=== PATIENT | female | born 1940 | race Caucasian/White ===

== ENCOUNTER 2017-03-09 20:31 | Inpatient (IN) | payer MEDICARE, OTHER ==
[2017-03-09] MEDS ORDERED: Adenosine 6 MG/2 ML SDV ONE (20:54)
[2017-03-09] MEDS ORDERED: Diltiazem 100 MG AdvVial ONE (21:03)
[2017-03-09] MEDS ORDERED: Diltiazem 25 MG/5 ML SDV ONE (21:04)
[2017-03-09] MEDS ORDERED: Sodium Chloride 0.9% 100 ML ONE (21:08)
[2017-03-09] MEDS ORDERED: Sodium Chloride 0.9% 10 ML Syringe FLUSH PRN ×2 (21:13→23:41)
[2017-03-09] MEDS ORDERED: Propofol 200 MG/20 ML SDV ONE (21:33)
[2017-03-09] MEDS ORDERED: Amiodarone 150 MG in Dextrose 5% in Water 100 ML IV ONE ×2 (21:58)
--- NOTE | 2017-03-09 22:13 | EDM.PDOC ---
ED HISTORY OF PRESENT ILLNESS - General Chief Complaint: Cardiovascular Problem Stated Complaint: HEART PALPITATIONS Time Seen by Provider: 03/09/17 21:11 Source: Reports: Patient, Family History Limitations: Reports: No limitations - History of Present Illness INITIAL COMMENTS - FREE TEXT/NARRATIVE: 76-year-old female presents emergency department day complaint of palpitations, she states is fine at rest he is not short of breath however he she exerts herself she gets significantly short of breath no nausea vomiting no other GI symptomatologies she takes no prescribed medications she has no heart history does use tobacco products - Related Data Allergies/ADRs: Allergies Allergy/AdvReac Type Severity Reaction Status Date / Time morphine Allergy Cannot Verified 03/09/17 21:23 Remember Home Meds: Home Meds Aspirin 03/09/17 [History] Past Medical History - Past Surgical History GI Surgical History: Reports: Appendectomy, Cholecystectomy Social & Family History - Tobacco Use Smoking Status *Q: Current Every Day Smoker Years of Tobacco use: 60 Packs/Tins Daily: 1.5 ED ROS GENERAL - Review of Systems Review Of Systems: See Below Constitutional: Reports: no symptoms HEENT: Reports: No symptoms Respiratory: Reports: No Symptoms Cardiovascular: Reports: Dyspnea on exertion, Palpitations GI/Abdominal: Reports: No symptoms : Reports: no symptoms Musculoskeletal: Reports: no symptoms ED EXAM, GENERAL - Physical Exam Exam: See Below Exam Limited By: No limitations Eye Exam: bilateral eye: normal inspection Throat/Mouth: Normal inspection Head: atraumatic, normocephalic Neck: normal inspection, supple, non-tender, full range of motion Respiratory/Chest: no respiratory distress, lungs clear, normal breath sounds, no accessory muscle use Cardiovascular: tachycardia GI/Abdominal: soft, non tender ED CARDIOLOGY PROCEDURES - Cardioversion Time of Cardioversion: 22:28 Indication: atrial fibrillation with RVR Patient Counseled: Yes Informed Consent Obtained: Yes Preparation: IV access, airway management equipment, supplemental oxygen, monitor, reversal agents available Pre-procedure Sedation: propofol Cardioversion Energy: other (125,150,200,300) Mode: biphasic Successful: No Number of Attempts: other: (3) Patient Condition Post Cardioversion: unchanged Post Cardioversion EKG Reviewed: No (no change in rhythm) Course - Vital Signs Last Recorded V/S: Last Vital Signs Temp 100.0 F 03/09/17 21:31 Pulse 235 H 03/09/17 21:31 Resp 24 H 03/09/17 21:31 BP 138/88 03/09/17 21:31 Pulse Ox 94 L 03/09/17 21:31 - Orders/Labs/Meds Orders: Active Orders 24 hr Category Date Time Status Cardiac Monitoring [RC] .As Directed Care 03/09/17 21:13 Active EKG Documentation Completion [RC] ASDIRECTED Care 03/09/17 21:13 Active Peripheral IV Care [RC] . DIRECTED Care 03/09/17 21:13 Active Chest 1V Frontal [CR] Stat Exams 03/09/17 21:13 Taken Amiodarone 450 MG in D5W @ 1 MG/MIN(250ml) Med 03/09/17 22:00 Ordered Amiodarone [Cordarone] 450 mg Dextrose 5% in Water 241 ml IV ASDIRECTED Amiodarone [Cordarone] 150 mg Med 03/09/17 21:58 Ordered Dextrose 5% in Water 100 ml IV .BOLUS Sodium Chloride 0.9% [Saline Flush] Med 03/09/17 21:13 Active 10 ml FLUSH ASDIRECTED PRN Peripheral IV Insertion Adult [OM.PC] Stat Oth 03/09/17 21:13 Ordered Saline Lock Insert [OM.PC] Stat Oth 03/09/17 21:13 Ordered EKG 12 Lead [EK] Stat Ther 03/09/17 21:13 Ordered Medication Orders Amiodarone HCl 150 mg/ (Dextrose/Water) 103 mls @ 600 mls/hr IV .BOLUS ONE PRN Reason: Protocol Stop: 03/09/17 22:08 Amiodarone HCl 450 mg/ (Dextrose/Water) 250 mls @ 33.33 mls/hr IV ASDIRECTED CECIL; 1 MG/MIN PRN Reason: Protocol Sodium Chloride (Saline Flush) 10 ml FLUSH ASDIRECTED PRN PRN Reason: Keep Vein Open Labs: Laboratory Tests 03/09/17 03/09/17 03/09/17 Range/Units 21:13 21:13 21:13 WBC 15.1 H (4.5-11.0) K/uL RBC 4.17 (3.30-5.50) M/uL Hgb 13.1 (12.0-15.0) g/dL Hct 39.5 (36.0-48.0) % MCV 95 (80-98) fL MCH 31 (27-31) pg MCHC 33 (32-36) % Plt Count 304 (150-400) K/uL Neut % (Auto) 77 H (36-66) % Lymph % (Auto) 12 L (24-44) % [place] % (Auto) 9 H (2-6) % Eos % (Auto) 1 L (2-4) % Baso % (Auto) 1 (0-1) % Sodium 136 L (140-148) mmol/L Potassium 3.5 L (3.6-5.2) mmol/L Chloride 99 L (100-108) mmol/L Carbon Dioxide 25 (21-32) mmol/L Anion Gap 15.5 H (5.0-14.0) mmol/L BUN 9 (7-18) mg/dL Creatinine 0.9 (0.6-1.0) mg/dL Est Cr Clr Drug Dosing 49.78 mL/min Estimated GFR (MDRD) > 60 (>60) Glucose 178 H (74-106) mg/dL Calcium 8.1 L (8.5-10.1) mg/dL Total Bilirubin 0.7 (0.2-1.0) mg/dL AST 11 L (15-37) U/L ALT 12 (12-78) U/L Alkaline Phosphatase 90 (46-116) U/L CK-MB (CK-2) 0.3 (0-3.6) mg/mL Troponin I 0.038 (0.000-0.056) ng/mL Total Protein 7.1 (6.4-8.2) g/dL Albumin 3.1 L (3.4-5.0) g/dL Globulin 4.0 H (2.3-3.5) g/dL Albumin/Globulin Ratio 0.8 L (1.2-2.2) Ethyl Alcohol < 3 mg/dL Meds: Medications Generic Name Dose Route Start Last Admin Trade Name Freq PRN Reason Stop Dose Admin Amiodarone HCl 150 mg/ 103 mls @ 600 mls/hr 03/09/17 21:58 Dextrose/Water IV 03/09/17 22:08 .BOLUS ONE Protocol Amiodarone HCl 450 mg/ 250 mls @ 33.33 mls/hr 03/09/17 22:00 Dextrose/Water IV ASDIRECTED CECIL Protocol 1 MG/MIN Sodium Chloride 10 ml 03/09/17 21:13 Saline Flush FLUSH ASDIRECTED PRN Keep Vein Open Discontinued Medications Generic Name Dose Route Start Last Admin Trade Name [place] PRN Reason Stop Dose Admin Adenosine Confirm 03/09/17 20:54 Adenocard Administered 03/09/17 20:55 Dose 18 mg .ROUTE .STK-MED ONE Diltiazem HCl Confirm 03/09/17 21:03 Cardizem Administered 03/09/17 21:04 Dose 100 mg .ROUTE .STK-MED ONE Diltiazem HCl Confirm 03/09/17 21:04 Diltiazem Administered 03/09/17 21:05 Dose 25 mg .ROUTE .STK-MED ONE Sodium Chloride Confirm 03/09/17 21:08 Normal Saline Administered 03/09/17 21:09 Dose 100 mls @ as directed .ROUTE .STK-MED ONE Propofol Confirm 03/09/17 21:33 Diprivan 20 Ml Administered 03/09/17 21:34 Dose 200 mg .ROUTE .STK-MED ONE Departure - Departure Time of Disposition: 22:32 Disposition: Admitted As Inpatient 66 Condition: fair Clinical Impression: Atrial fibrillation Qualifiers: Atrial fibrillation type: persistent Qualified Code(s): I48.1 - Persistent atrial fibrillation Forms: ED Department Discharge - My Orders Last 24 Hours: My Active Orders 03/09/17 21:13 Cardiac Monitoring [RC] .As Directed EKG Documentation Completion [RC] ASDIRECTED Peripheral IV Care [RC] . DIRECTED Chest 1V Frontal [CR] Stat Sodium Chloride 0.9% [Saline Flush] 10 ml FLUSH ASDIRECTED PRN Peripheral IV Insertion Adult [OM.PC] Stat Saline Lock Insert [OM.PC] Stat EKG 12 Lead [EK] Stat 03/09/17 21:58 Amiodarone [Cordarone] 150 mg Dextrose 5% in Water 100 ml IV .BOLUS 03/09/17 22:00 Amiodarone 450 MG in D5W @ 1 MG/MIN(250ml) Amiodarone [Cordarone] 450 mg Dextrose 5% in Water 241 ml IV ASDIRECTED - Assessment/Plan Last 24 Hours: My Active Orders 03/09/17 21:13 Cardiac Monitoring [RC] .As Directed EKG Documentation Completion [RC] ASDIRECTED Peripheral IV Care [RC] . DIRECTED Chest 1V Frontal [CR] Stat Sodium Chloride 0.9% [Saline Flush] 10 ml FLUSH ASDIRECTED PRN Peripheral IV Insertion Adult [OM.PC] Stat Saline Lock Insert [OM.PC] Stat EKG 12 Lead [EK] Stat 03/09/17 21:58 Amiodarone [Cordarone] 150 mg Dextrose 5% in Water 100 ml IV .BOLUS 03/09/17 22:00 Amiodarone 450 MG in D5W @ 1 MG/MIN(250ml) Amiodarone [Cordarone] 450 mg Dextrose 5% in Water 241 ml IV ASDIRECTED Plan: Assessment Acuity = acute Site and laterality = atrial fibrillation with rapid ventricular response Etiology = unclear etiology Manifestations = dyspnea on exertion Location of injury = home Lab values = WBC elevated at 15.1 consistent leukocytosis, sodium low at 136 consistent hyponatremia potassium low at 2.5 consistent hypokalemia troponin normal at 0.038, albumin low at 3.1 consistent with hypoalbuminemia, EKG demonstrates a sinus tachycardia able to slow the rhythm down with adenosine I observed no P waves on the rhythm strip Plan Attempted combination of Cardizem loading doses 0.25 mg per kilogram and 0.35 mg per kilogram with minimal effects of Cardizem drip was started prior to DC conversion attempted DC conversion 4 times up to 300 J was unsuccessful. Consultants hospitalist over the horizon targeting supervisor recommended trying amiodarone and hospital admission with the drip for further evaluation Patient was in agreement with the plan all questions were answered, This note was dictated using [employer] voice recognition software please call with any questions.
[2017-03-09] MEDS ORDERED: Adenosine 6 MG/2 ML SDV IVPUSH ONE ×2 (22:23)
[2017-03-09] MEDS ORDERED: Diltiazem 25 MG/5 ML SDV IVPUSH ONE (22:25)
[2017-03-09] MEDS ORDERED: Diltiazem 100 MG in Sodium Chloride 0.9% 100 ML IV SCH (22:30)
[2017-03-09] MEDS ORDERED: Sodium Chloride 0.9% 1,000 ML IV SCH ×2 (22:45→23:41)
--- NOTE | 2017-03-09 23:19 | PCM.HP ---
H&P History of Present Illness - General Date of Service: 03/09/17 Admit Problem/Dx: Admission Diagnosis/Problem Admission Diagnosis/Problem Atrial fibrillation Source of Information: Patient, Family, Provider, RN notes reviewed History Limitations: Reports: No limitations - History of Present Illness Initial Comments - Free Text/Narative: This patient is a 76-year-old woman who is admitted through the emergency department for further evaluation and management of atrial fibrillation with rapid ventricular response. She has no prior history of atrial fibrillation and denies any prior history of significant cardiac disease, specifically denies congestive heart failure, rheumatic fever, heart murmur, coronary artery disease, or other dysrhythmias. She is a [id number] smoking history and I suspect does have some underlying COPD. She takes no medication other than a baby aspirin daily. It's felt somewhat more fatigued and tired over the past few days, but has been taking care of 2 of her very young great-grandchildren. Today noted abrupt onset of a rapid heart rate, and after symptoms did not resolve she presented to the emergency room for further evaluation. On initial assessment was noted to have a heart rate in the range of 200, again is seen transit least load the rate but then it jumped back up to the previous range. She was given bolus doses of Cardizem that did bring it down but did not bring the rate within normal range. 3 attempts at cardioversion were unsuccessful in converting her to sinus rhythm. She's been given a loading dose of amiodarone in the emergency department and started on a continuous infusion per protocol. - Related Data Allergies/Adverse Reactions: Allergies Allergy/AdvReac Type Severity Reaction Status Date / Time morphine Allergy Cannot Verified 03/09/17 21:23 Remember Home Medications: Home Meds Aspirin 03/09/17 [History] Past Medical History - Past Surgical History GI Surgical History: Reports: Appendectomy, Cholecystectomy Social & Family History - Tobacco Use Smoking Status *Q: Current Every Day Smoker Years of Tobacco use: 60 Packs/Tins Daily: 1.5 H&P Review of Systems - Review of Systems: Review Of Systems: See Below General: Reports: fatigue. Denies: fever, chills HEENT: Reports: no symptoms Pulmonary: Reports: No Symptoms Cardiovascular: Reports: palpitations, lightheadedness. Denies: chest pain, dyspnea on exertion, orthopnea, PND, edema, syncope Gastrointestinal: Reports: No symptoms Genitourinary: Reports: no symptoms Musculoskeletal: Reports: no symptoms Skin: Reports: no symptoms Psychiatric: Reports: no symptoms Neurological: Reports: No Symptoms Hematologic/Lymphatic: Reports: no symptoms Immunologic: Reports: no symptoms Exam - Exam Exam: See Below - Vital Signs Vital Signs: Last Vital Signs Temp 100.0 F 03/09/17 21:31 Pulse 170 H 03/09/17 22:31 Resp 24 H 03/09/17 21:31 BP 128/56 L 03/09/17 22:49 Pulse Ox 91 L 03/09/17 22:06 Weight: 130 lb 11.746 oz - Exam Quality Assessment: supplemental oxygen, DVT prophylaxis General: alert, oriented, cooperative, mild distress HEENT: Conjunctiva clear, Hearing intact, Mucosa moist & pink, Nares patent, Normal nasal septum, Posterior pharynx clear, Pupils equal, Pupils reactive, TMs clear Neck: supple, trachea midline, +2 carotid pulse wo bruit Lungs: Decreased breath sounds, Wheezing. No: Crackles, Rales, Rhonchi, Rub, Stridor Cardiovascular: normal S1, normal S2, irregular rhythm, tachycardia. No: bradycardia, systolic murmur, diastolic murmur Abdomen: normal bowel sounds, soft Back Exam: normal inspection, full range of motion, NT Extremities: 3, normal inspection, 10 Skin: warm, dry, intact Neurological: cranial nerves intact, strength equal bilateral, normal speech, normal tone, sensation intact. No: focal deficit Neuro Extensive - Mental Status: alert, oriented x3, normal mood/affect, normal cognition, memory intact - Patient Data Result Diagrams: 03/09/17 21:13 03/09/17 21:13 *Q Meaningful Use (ADM) - VTE *Q VTE Criteria *Q: - VTE Risk Assess *Q Each Risk Factor Represents 1 Point: None Total Score 1 Point Risk Factors: 0 Each Risk Factor Represents 2 Points: None Total Score 2 Point Risk Factors: 0 Each Risk Factor Represents 3 Points: Age 75 Years or Greater Total Score 3 Point Risk Factors: 3 Each Risk Factor Represents 5 Points: None Total Score 5 Point Risk Factors: 0 Venous Thromboembolism Risk Factor Score *Q: 3 - Stroke *Q Stroke Criteria *Q: - AMI *Q AMI Criteria *Q: Problem List Initiated/Reviewed/Updated: Yes Orders Last 24hrs: Active Orders 24 hr Category Date Time Status Patient Status Manage Transfer [TRANSFER] Routine ADT 03/09/17 23:01 Ordered Cardiac Monitoring [RC] .As Directed Care 03/09/17 23:01 Ordered Resuscitation Status Routine Resus Stat 03/09/17 23:02 Ordered Medication Orders Amiodarone HCl 450 mg/ (Dextrose/Water) 250 mls @ 33.33 mls/hr IV ASDIRECTED CECIL; 1 MG/MIN PRN Reason: Protocol Last Admin: 03/09/17 22:49 Dose: 1 mg/min, 33.33 mls/hr Diltiazem HCl 100 mg/ Sodium (Chloride) 100 mls @ 5 mls/hr IV TITRATE CECIL; 5 MG /HR PRN Reason: Protocol Last Admin: 03/09/17 22:31 Dose: 5 mg/hr, 5 mls/hr Sodium Chloride (Normal Saline) 1,000 mls @ 150 mls/hr IV ASDIRECTED CECIL Last Admin: 03/09/17 22:39 Dose: 150 mls/hr Sodium Chloride (Saline Flush) 10 ml FLUSH ASDIRECTED PRN PRN Reason: Keep Vein Open Last Admin: 03/09/17 22:36 Dose: 10 ml Assessment/Plan Comment:: ASSESSMENT AND PLAN ATRIAL FIBRILLATION WITH RAPID VENTRICULAR RESPONSE-the abrupt onset this evening, rates approaching 200 beats per minute. No significant history of cardiac disease, I suspect that she does have some underlying COPD. Failed management with IV Cardizem and attempted cardioversion. Given amiodarone bolus in the emergency department -Continuous infusion of amiodarone per protocol -TSH and magnesium pending -Echocardiogram in a.m. -N.p.o. after midnight for possible repeat cardioversion in a.m. MAINTENANCE ISSUES -DVT prophylaxis; Lovenox 40 mg subcutaneous daily -GI prophylaxis; not indicated -Parsons catheter; not indicated -Nutrition; regular diet, n.p.o. after midnight -Nicotine dependence; nicotinic patch 21 mg daily CODE STATUS-FULL CODE ADMISSION STATUS-patient will be admitted to inpatient status, expect at least a 2 night hospital stay for evaluation and management of problems as outlined above. At the time of this admission I do not reasonably expected evaluation and management of this problem will require more than a 96 hour hospital stay. DISPOSITION-anticipate discharge to home after the hospital stay. PRIMARY CARE PROVIDER-
[2017-03-09] MEDS ORDERED: Magnesium Sulfate/Water 2 GM in Premix Bag 1 BAG IV ONE (23:23)
[2017-03-09] MEDS ORDERED: Albuterol 0.083% 2.5 MG/3 ML Neb Soln NEB PRN (23:41)
[2017-03-09] MEDS ORDERED: Albuterol/Ipratropium 3.0-0.5 MG/3 ML Neb Soln NEB PRN (23:41)
[2017-03-09] MEDS ORDERED: Enoxaparin 40 MG/0.4 ML Syringe SUBCUT SCH (23:41)
[2017-03-09] MEDS ORDERED: Polyethylene Glycol 3350 Powder 17 GM Packet PO PRN (23:41)
[2017-03-09] MEDS ORDERED: oxyCODONE 5 MG Tab PO PRN (23:41)
[2017-03-09] MEDS ORDERED: Docusate Sodium 100 MG Cap PO PRN (23:41)
[2017-03-09] MEDS ORDERED: Potassium Chloride 20 MEQ Tab.ER PO ONE (23:41)
[2017-03-09] MEDS ORDERED: Acetaminophen 325 MG Tab PO PRN (23:41)
[2017-03-09] MEDS ORDERED: Magnesium Hydroxide 400 MG/5 ML Susp 30 ML Cup PO PRN (23:41)
[2017-03-09] MEDS ORDERED: Ondansetron 4 MG/2 ML SDV IV PRN (23:41)
[2017-03-10] MEDS: LORazepam 0.5 MG Tab PO PRN (00:58)
[2017-03-10] MEDS: Metoprolol Tartrate 50 MG Tab PO SCH ×2 (00:59→06:27)
--- NOTE | 2017-03-10 08:53 | PCM.PN ---
- General Info Date of Service: 03/10/17 Functional Status: Reports: pain controlled, tolerating diet - Review of Systems General: Reports: Weakness. Denies: Fever Cardiovascular: Denies: Chest Pain, Palpitations Systems Review Comment:: No acute events overnight. She converted to normal sinus rhythm around 2 AM and has remained in normal sinus rhythm since that time. Blood pressures have tolerated the amiodarone infusion. She has a loose sounding cough but has not had any fevers. She has not been hypoxic. No complaints of chest pain. Troponin level did rise to 0.26 this morning. Urine sample appeared to be infected and urine has a very strong odor. Patient reports symptoms of frequency and incomplete emptying of her bladder. - Patient Data Vitals - most recent: Last Vital Signs Temp 37.4 C 03/10/17 08:00 Pulse 87 03/10/17 08:00 Resp 24 H 03/10/17 08:00 BP 126/84 03/10/17 08:00 Pulse Ox 90 L 03/10/17 08:00 Weight - most recent: 59.3 kg I&O - last 24 hours: Intake & Output 03/09/17 03/10/17 03/10/17 22:59 06:59 14:59 Intake Total 1923 Output Total 900 Balance 1023 Lab Results last 24 hrs: Laboratory Results - last 24 hr 03/09/17 03/10/17 03/10/17 Range/Units 23:41 04:45 04:45 WBC 14.8 H (4.5-11.0) K/uL RBC 3.81 (3.30-5.50) M/uL Hgb 11.9 L (12.0-15.0) g/dL Hct 36.6 (36.0-48.0) % MCV 96 (80-98) fL MCH 31 (27-31) pg MCHC 33 (32-36) % Plt Count 240 (150-400) K/uL Neut % (Auto) 79 H (36-66) % Lymph % (Auto) 11 L (24-44) % [place] % (Auto) 10 H (2-6) % Eos % (Auto) 0 L (2-4) % Baso % (Auto) 0 (0-1) % Sodium 140 (140-148) mmol/L Potassium 4.3 (3.6-5.2) mmol/L Chloride 107 (100-108) mmol/L Carbon Dioxide 24 (21-32) mmol/L Anion Gap 8.8 (5.0-14.0) mmol/L BUN 9 (7-18) mg/dL Creatinine 0.7 (0.6-1.0) mg/dL Est Cr Clr Drug Dosing 64.01 mL/min Estimated GFR (MDRD) > 60 (>60) Glucose 149 H (74-106) mg/dL Calcium 7.6 L (8.5-10.1) mg/dL Magnesium (1.8-2.4) mg/dL Troponin I 0.265 H* (0.000-0.056) ng/mL Urine Color Yellow Urine Appearance Cloudy Urine pH 6.0 (4.5-8.0) Ur Specific [place] 1.010 (1.008-1.030) Urine Protein Negative (NEGATIVE) mg/dL Urine Glucose (UA) Normal (NEGATIVE) mg/dL Urine Ketones Negative (NEGATIVE) mg/dL Urine Occult Blood Moderate (NEGATIVE) Urine Nitrite Positive H (NEGATIVE) Urine Bilirubin Negative (NEGATIVE) Urine Urobilinogen Normal (NORMAL) mg/dL Ur Leukocyte Esterase Small (NEGATIVE) Urine RBC 0-5 (0-5) Urine WBC 0-5 (0-5) Ur Epithelial Cells Rare Amorphous Sediment Not seen Urine Bacteria Many Urine Mucus Not seen 03/10/17 Range/Units 04:45 WBC (4.5-11.0) K/uL RBC (3.30-5.50) M/uL Hgb (12.0-15.0) g/dL Hct (36.0-48.0) % MCV (80-98) fL MCH (27-31) pg MCHC (32-36) % Plt Count (150-400) K/uL Neut % (Auto) (36-66) % Lymph % (Auto) (24-44) % [place] % (Auto) (2-6) % Eos % (Auto) (2-4) % Baso % (Auto) (0-1) % Sodium (140-148) mmol/L Potassium (3.6-5.2) mmol/L Chloride (100-108) mmol/L Carbon Dioxide (21-32) mmol/L Anion Gap (5.0-14.0) mmol/L BUN (7-18) mg/dL Creatinine (0.6-1.0) mg/dL Est Cr Clr Drug Dosing mL/min Estimated GFR (MDRD) (>60) Glucose (74-106) mg/dL Calcium (8.5-10.1) mg/dL Magnesium 2.3 D (1.8-2.4) mg/dL Troponin I (0.000-0.056) ng/mL Urine Color Urine Appearance Urine pH (4.5-8.0) Ur Specific [place] (1.008-1.030) Urine Protein (NEGATIVE) mg/dL Urine Glucose (UA) (NEGATIVE) mg/dL Urine Ketones (NEGATIVE) mg/dL Urine Occult Blood (NEGATIVE) Urine Nitrite (NEGATIVE) Urine Bilirubin (NEGATIVE) Urine Urobilinogen (NORMAL) mg/dL Ur Leukocyte Esterase (NEGATIVE) Urine RBC (0-5) Urine WBC (0-5) Ur Epithelial Cells Amorphous Sediment Urine Bacteria Urine Mucus Med Orders - Current: Current Medications Acetaminophen (Tylenol) 650 mg PO Q4H PRN PRN Reason: Pain (Mild 1-3)/fever Albuterol (Proventil Neb Soln) 2.5 mg NEB Q4H PRN PRN Reason: Shortness Of Breath/wheezing Albuterol/Ipratropium (Duoneb 3.0-0.5 Mg/3 Ml) 3 ml NEB QID PRN PRN Reason: Shortness Of Breath/wheezing Amiodarone HCl (Cordarone) 200 mg PO BID [facility] Docusate Sodium (Colace) 100 mg PO BID PRN PRN Reason: Constipation Enoxaparin Sodium (Lovenox) 40 mg SUBCUT Q24H [facility] Amiodarone HCl 450 mg/ (Dextrose/Water) 250 mls @ 33.33 mls/hr IV ASDIRECTED [facility]; 1 MG/MIN PRN Reason: Protocol Last Admin: 03/10/17 08:13 Dose: 0.5 mg/min, 16.66 mls/hr Sodium Chloride (Normal Saline) 1,000 mls @ 100 mls/hr IV ASDIRECTED [facility] Last Admin: 03/10/17 00:11 Dose: 100 mls/hr Ceftriaxone Sodium 1 gm/ (Sodium Chloride) 50 mls @ 100 mls/hr IV Q24H [facility] Lorazepam (Ativan) 0.5 mg PO Q4H PRN PRN Reason: Anxiety Last Admin: 03/10/17 00:58 Dose: 0.5 mg Magnesium Hydroxide (Milk Of Magnesia) 30 ml PO Q12H PRN PRN Reason: Constipation Metoprolol Tartrate (Lopressor) 25 mg PO Q6H [facility] Ondansetron HCl (Zofran) 4 mg IV Q4H PRN PRN Reason: Nausea/Vomiting Oxycodone HCl (Oxycodone) 5 mg PO Q4H PRN PRN Reason: Pain (moderate 4-6) Polyethylene Glycol (Miralax) 17 gm PO DAILY PRN PRN Reason: Constipation Sodium Chloride (Saline Flush) 10 ml FLUSH ASDIRECTED PRN PRN Reason: Keep Vein Open Last Admin: 03/09/17 23:59 Dose: 10 ml Discontinued Medications Adenosine (Adenocard) Confirm Administered Dose 18 mg .ROUTE .STK-MED ONE Stop: 03/09/17 20:55 Last Admin: 03/09/17 23:40 Dose: Not Given Adenosine (Adenocard) 6 mg IVPUSH NOW ONE Stop: 03/09/17 22:24 Last Admin: 03/09/17 22:29 Dose: 6 mg Adenosine (Adenocard) 12 mg IVPUSH NOW ONE Stop: 03/09/17 22:24 Last Admin: 03/09/17 22:29 Dose: 12 mg Diltiazem HCl (Cardizem) Confirm Administered Dose 100 mg .ROUTE .STK-MED ONE Stop: 03/09/17 21:04 Last Admin: 03/09/17 23:40 Dose: Not Given Diltiazem HCl (Diltiazem) Confirm Administered Dose 25 mg .ROUTE .STK-MED ONE Stop: 03/09/17 21:05 Last Admin: 03/09/17 23:40 Dose: Not Given Diltiazem HCl (Diltiazem) 15 mg IVPUSH ONETIME ONE Stop: 03/09/17 22:26 Last Admin: 03/09/17 22:30 Dose: 15 mg Enoxaparin Sodium (Lovenox) [address] [facility] Last Admin: 03/10/17 00:13 Dose: 40 mg Sodium Chloride (Normal Saline) Confirm Administered Dose 100 mls @ as directed .ROUTE .STK-MED ONE Stop: 03/09/17 21:09 Last Admin: 03/09/17 23:40 Dose: Not Given Amiodarone HCl 150 mg/ (Dextrose/Water) 103 mls @ 600 mls/hr IV .BOLUS ONE PRN Reason: Protocol Stop: 03/09/17 22:08 Last Admin: 03/09/17 22:20 Dose: 600 mls/hr Amiodarone HCl 450 mg/ (Dextrose/Water) 250 mls @ 33.33 mls/hr IV ASDIRECTED [facility]; 1 MG/MIN PRN Reason: Protocol Last Admin: 03/09/17 22:49 Dose: 1 mg/min, 33.33 mls/hr Diltiazem HCl 100 mg/ Sodium (Chloride) 100 mls @ 5 mls/hr IV TITRATE [facility]; 5 MG /HR PRN Reason: Protocol Last Admin: 03/09/17 22:31 Dose: 5 mg/hr, 5 mls/hr Sodium Chloride (Normal Saline) 1,000 mls @ 150 mls/hr IV ASDIRECTED [facility] Last Admin: 03/09/17 22:39 Dose: 150 mls/hr Magnesium Sulfate 2 gm/ Premix 50 mls @ 25 mls/hr IV ONETIME ONE Stop: 03/10/17 01:22 Last Admin: 03/09/17 23:57 Dose: 25 mls/hr Metoprolol Tartrate (Lopressor) 25 mg PO Q6H [facility] Last Admin: 03/10/17 06:27 Dose: 25 mg Metoprolol Tartrate (Lopressor) 25 mg PO Q6H [facility] Nicotine (Habitrol) 21 mg TRDERM DAILY [facility] Last Admin: 03/10/17 08:14 Dose: Not Given Potassium Chloride (Klor-Con M20) 40 meq PO ONETIME ONE Stop: 03/09/17 23:42 Last Admin: 03/10/17 00:07 Dose: 40 meq Propofol (Diprivan 20 Ml) Confirm Administered Dose 200 mg .ROUTE .STK-MED ONE Stop: 03/09/17 21:34 Sodium Chloride (Saline Flush) 10 ml FLUSH ASDIRECTED PRN PRN Reason: Keep Vein Open Last Admin: 03/09/17 22:36 Dose: 10 ml - Exam Quality Assessment: No: supplemental oxygen General: alert, oriented, cooperative, no acute distress Neck: supple Lungs: Clear to auscultation, Normal respiratory effort Cardiovascular: Regular Rate, Regular Rhythm. No: Murmurs Abdomen: soft, no distension Extremities: no edema, normal pulses Skin: warm, dry Psy/Mental Status: alert, normal affect - Problem List Review Problem List Initiated/Reviewed/Updated: Yes - My Orders Last 24 Hours: My Active Orders 03/10/17 08:18 CULTURE URINE [RM] Routine 03/10/17 09:00 cefTRIAXone [Rocephin] 1 gm Sodium Chloride 0.9% [Normal Saline] 50 ml IV Q24H 03/10/17 10:00 T4 FREE [CHEM] Timed TROPONIN I [CHEM] Timed 03/11/17 05:00 BASIC METABOLIC PANEL,BMP [CHEM] Timed CBC W/O DIFF,HEMOGRAM [HEME] Timed (1) 03/11/17 09:00 Amiodarone [Cordarone] 200 mg PO BID - Plan Plan:: ASSESSMENT AND PLAN ATRIAL FIBRILLATION WITH RAPID VENTRICULAR RESPONSE - now in normal sinus rhythm after amiodarone infusion. Triggers could include urinary tract infection with or without contribution from COPD and/or minor valvular issues. Formal echocardiogram read is pending but she does have some mitral regurgitation noted on the echocardiogram. LV function appears to be normal. TSH was normal. -Continuous infusion of amiodarone per protocol the transition to oral medications in the morning -Anticipate temporary use of amiodarone while infection is being treated -Followup formal Echocardiogram report -continue cardiac monitoring -Treat infection as below Acute cystitis - patient with symptoms of urinary tract infection and urine sample suggestive of infection. -Ceftriaxone -Urine culture MAINTENANCE ISSUES -DVT prophylaxis; Lovenox 40 mg subcutaneous daily -GI prophylaxis; not indicated -Parsons catheter; not indicated -Nutrition; regular diet -Nicotine dependence; patient declines nicotine patch CODE STATUS-FULL CODE ADMISSION STATUS-patient will be admitted to inpatient status, expect at least a 2 night hospital stay for evaluation and management of problems as outlined above. At the time of this admission I do not reasonably expected evaluation and management of this problem will require more than a 96 hour hospital stay. DISPOSITION - anticipate discharge to home after the hospital stay. Kush Borrego M.D.
[2017-03-10] MEDS ORDERED: Nicotine 21 MG/24 Hr Patch TRDERM SCH (09:00)
[2017-03-10] MEDS: cefTRIAXone 1 GM in Sodium Chloride 0.9% 50 ML IV SCH (09:01)
--- NOTE | 2017-03-10 10:06 | CR ---
Portable chest There is scarring in the lung apices. There are no infiltrates or effusions. There is a nodular dens ity in the right infrahilar region. The density measures approximately 3.2 cm. The heart and vascula r structures are unremarkable. Impression: 1. Right infrahilar density. A contrast enhanced chest CT is recommended for further evaluation. A p ulmonary mass cannot be excluded.
[2017-03-10] MEDS ORDERED: Metoprolol Tartrate 50 MG Tab PO SCH (12:00)
[2017-03-10] MEDS: Metoprolol Tartrate 25 MG Tab PO SCH ×3 (12:23→23:20)
[2017-03-10] MEDS ORDERED: Enoxaparin 40 MG/0.4 ML Syringe SUBCUT SCH (21:00)
[2017-03-11] MEDS: LORazepam 0.5 MG Tab PO PRN (01:45)
[2017-03-11] MEDS: Metoprolol Tartrate 25 MG Tab PO SCH (06:12)
[2017-03-11 08:43] VITALS: BP 118/42
--- NOTE | 2017-03-11 08:58 | PCM.DCSUM1 ---
Discharge Summary - Hospital Course Brief History: 76-year-old female with history of tobacco dependence who presented with palpitations and was admitted for management of atrial fibrillation with rapid ventricular response. - Discharge Data Discharge Date: 03/11/17 Discharge Disposition: Home, Self-Care 01 Condition: Good - Discharge Diagnosis/Problem(s) (1) Atrial fibrillation with rapid ventricular response SNOMED Code(s): 387435171707752 ICD Code: I48.91 - UNSPECIFIED ATRIAL FIBRILLATION Status: Acute (2) Elevated troponin SNOMED Code(s): 988596204, 204865765 ICD Code: R74.8 - ABNORMAL LEVELS OF OTHER SERUM ENZYMES Status: Acute (3) Acute cystitis with positive culture SNOMED Code(s): 037398936 ICD Code: N30.00 - ACUTE CYSTITIS WITHOUT HEMATURIA Status: Acute - Patient Summary/Data Hospital Course: Maisha presented to the emergency room with palpitations. Workup in the emergency room revealed atrial fibrillation with a rapid ventricular response. She did not respond well to diltiazem but didn't have an improvement in her heart rate after amiodarone was bolused and then an infusion was started. Initial laboratory studies were unremarkable. She was admitted to the intensive care unit for further management. Overnight following admission she converted to a normal sinus rhythm with the amiodarone infusion. Repeat EKG after conversion did not reveal any ischemic changes. Her initial troponin was normal but her second troponin was elevated at 0.26. She remained hemodynamically stable and did not have any symptoms such as shortness of breath or chest pain. The morning after admission she has tolerated the amiodarone infusion well. Her third troponin level returned at 0.27. She has remained stable. We did complete a total of 24 hours of amiodarone infusion. She tolerated this well. She has remained in a normal sinus rhythm. A urine sample obtained the morning after admission didn't suggest infection. She also had symptoms that were fitting with acute cystitis. She received a dose of ceftriaxone empirically. Urine culture is pending at the time of discharge but is growing a gram-positive cocci. I suspect that the urinary tract infection was the trigger for her atrial fibrillation. We did complete an echocardiogram which showed normal left ventricular function and no significant wall motion abnormalities. She did have some minor valvular abnormalities including mitral regurgitation. There is no evidence for acute respiratory infection. Planning to continue the amiodarone for 2 weeks with 200 mg twice daily for one week and then 100 mg daily for once week. I suspect that once the infection has been treated that she will not require additional rhythm control. With a troponin elevation we're planning an outpatient stress test. I would like for her to complete her amiodarone treatment prior to the stress test. We will shoot for a stress test to be completed in 2 weeks with outpatient followup just after the stress test. She will need for additional days of antibiotic therapy for her acute cystitis. - Patient Instructions Diet: Heart Healthy Diet Activity: As Tolerated Driving: May Drive Today Showering/Bathing: May Shower Notify Provider of: Fever, Increased Pain, Nausea and/or Vomiting Other/Special Instructions: 1. You were in the hospital for management of atrial fibrillation with a rapid ventricular response. I suspect the abnormal heart rhythm was caused by the bladder infection. Your heart has returned to a normal rhythm with the help of a medication called amiodarone. I recommend that you continue to take this medication twice daily for one week and then once daily for one week. You may stop after these 2 weeks are up. 2. Your urine sample was suggestive of a bladder infection. Your urine culture is not complete at the time of discharge. I recommend that you take Augmentin twice daily for 8 more doses with your first dose being due this morning. Please take this medication with food to avoid stomach upset. 3. Our testing revealed an elevated troponin level. This test looks for damage and or irritation to the heart muscle. Your level elevated to about 5 times the upper limit of normal. I would recommend a stress test in 2 weeks to further evaluate this and see if you have significant blockages in your coronary arteries. 4. Please seek medical attention if you have fever greater than 101, the palpitations return or you develop chest pain/pressure or difficulty breathing. - Discharge Plan Prescriptions/Med Rec: Amiodarone [Cordarone] 200 mg PO ASDIRECTED #21 tablet Amoxicillin/Potassium Clav [Augmentin 875-125 Tablet] 1 each PO BID #8 tablet Home Medications: Home Meds Aspirin 81 mg PO DAILY 03/09/17 [History] Amiodarone [Cordarone] 200 mg PO ASDIRECTED #21 tablet 03/11/17 [Rx] Amoxicillin/Potassium Clav [Augmentin 875-125 Tablet] 1 each PO BID #8 tablet [Rx] Patient Handouts: Atrial Fibrillation, Amoxicillin; Clavulanic Acid tablets Forms: ED Department Discharge Referrals: Leeann Erickson MD [Physician] - (f/u in two weeks after your stress test to get your results and establish care ) - Discharge Summary/Plan Comment DC Time >30 min.: No (40 - set up stress test and follow up ) - Patient Data Vitals - Most Recent: Last Vital Signs Temp 37.1 C 03/11/17 02:00 Pulse 83 03/11/17 08:00 Resp 17 03/11/17 06:00 BP 118/42 L 03/11/17 08:00 Pulse Ox 94 L 03/11/17 08:00 Weight - Most Recent: 59.3 kg I&O - Last 24 hours: Intake & Output 03/10/17 03/11/17 03/11/17 22:59 06:59 14:59 Intake Total 240 1498 240 Output Total 600 750 Balance -360 748 240 Lab Results - Last 24 hrs: Laboratory Results - last 24 hr 03/10/17 03/11/17 03/11/17 Range/Units 10:00 05:00 05:00 WBC 13.0 H (4.5-11.0) K/uL RBC 3.66 (3.30-5.50) M/uL Hgb 11.4 L (12.0-15.0) g/dL Hct 35.4 L (36.0-48.0) % MCV 97 (80-98) fL MCH 31 (27-31) pg MCHC 32 (32-36) % Plt Count 222 (150-400) K/uL Sodium 139 L (140-148) mmol/L Potassium 3.9 (3.6-5.2) mmol/L Chloride 106 (100-108) mmol/L Carbon Dioxide 24 (21-32) mmol/L Anion Gap 12.9 (5.0-14.0) mmol/L BUN 9 (7-18) mg/dL Creatinine 0.7 (0.6-1.0) mg/dL Est Cr Clr Drug Dosing 64.01 mL/min Estimated GFR (MDRD) > 60 (>60) Glucose 120 H (74-106) mg/dL Calcium 7.6 L (8.5-10.1) mg/dL Troponin I 0.270 H* (0.000-0.056) ng/mL Free T4 1.17 (0.76-1.46) ng/dL [facility] Results - Last 24 hrs: Microbiology 03/10/17 08:18 Urine Culture - Preliminary Urine, Clean Catch Med Orders - Current: Current Medications Acetaminophen (Tylenol) 650 mg PO Q4H PRN PRN Reason: Pain (Mild 1-3)/fever Last Admin: 03/10/17 19:21 Dose: 650 mg Albuterol (Proventil Neb Soln) 2.5 mg NEB Q4H PRN PRN Reason: Shortness Of Breath/wheezing Albuterol/Ipratropium (Duoneb 3.0-0.5 Mg/3 Ml) 3 ml NEB QID PRN PRN Reason: Shortness Of Breath/wheezing Amiodarone HCl (Cordarone) 200 mg PO BID [facility] Last Admin: 03/11/17 08:11 Dose: 200 mg Aspirin (Aspirin) 81 mg PO DAILY [facility] Docusate Sodium (Colace) 100 mg PO BID PRN PRN Reason: Constipation Enoxaparin Sodium (Lovenox) 40 mg SUBCUT Q24H [facility] Last Admin: 03/10/17 21:01 Dose: 40 mg Amiodarone HCl 450 mg/ (Dextrose/Water) 250 mls @ 33.33 mls/hr IV ASDIRECTED [facility]; 1 MG/MIN PRN Reason: Protocol Last Admin: 03/10/17 08:13 Dose: 0.5 mg/min, 16.66 mls/hr Sodium Chloride (Normal Saline) 1,000 mls @ 100 mls/hr IV ASDIRECTED [facility] Last Admin: 03/10/17 00:11 Dose: 100 mls/hr Ceftriaxone Sodium 1 gm/ (Sodium Chloride) 50 mls @ 100 mls/hr IV Q24H [facility] Last Admin: 03/10/17 09:01 Dose: 100 mls/hr Lorazepam (Ativan) 0.5 mg PO Q4H PRN PRN Reason: Anxiety Last Admin: 03/11/17 01:45 Dose: 0.5 mg Magnesium Hydroxide (Milk Of Magnesia) 30 ml PO Q12H PRN PRN Reason: Constipation Metoprolol Tartrate (Lopressor) 25 mg PO Q6H [facility] Last Admin: 03/11/17 06:12 Dose: 25 mg Ondansetron HCl (Zofran) 4 mg IV Q4H PRN PRN Reason: Nausea/Vomiting Oxycodone HCl (Oxycodone) 5 mg PO Q4H PRN PRN Reason: Pain (moderate 4-6) Polyethylene Glycol (Miralax) 17 gm PO DAILY PRN PRN Reason: Constipation Sodium Chloride (Saline Flush) 10 ml FLUSH ASDIRECTED PRN PRN Reason: Keep Vein Open Last Admin: 03/09/17 23:59 Dose: 10 ml Discontinued Medications Adenosine (Adenocard) Confirm Administered Dose 18 mg .ROUTE .STDoctorC-MED ONE Stop: 03/09/17 20:55 Last Admin: 03/09/17 23:40 Dose: Not Given Adenosine (Adenocard) 6 mg IVPUSH NOW ONE Stop: 03/09/17 22:24 Last Admin: 03/09/17 22:29 Dose: 6 mg Adenosine (Adenocard) 12 mg IVPUSH NOW ONE Stop: 03/09/17 22:24 Last Admin: 03/09/17 22:29 Dose: 12 mg Diltiazem HCl (Cardizem) Confirm Administered Dose 100 mg .ROUTE .STDoctorC-MED ONE Stop: 03/09/17 21:04 Last Admin: 03/09/17 23:40 Dose: Not Given Diltiazem HCl (Diltiazem) Confirm Administered Dose 25 mg .ROUTE .STDoctorC-MED ONE Stop: 03/09/17 21:05 Last Admin: 03/09/17 23:40 Dose: Not Given Diltiazem HCl (Diltiazem) 15 mg IVPUSH ONETIME ONE Stop: 03/09/17 22:26 Last Admin: 03/09/17 22:30 Dose: 15 mg Enoxaparin Sodium (Lovenox) 40 mg SUBCUT DAILY [facility] Last Admin: 03/10/17 00:13 Dose: 40 mg Sodium Chloride (Normal Saline) Confirm Administered Dose 100 mls @ as directed .ROUTE .STDoctorC-MED ONE Stop: 03/09/17 21:09 Last Admin: 03/09/17 23:40 Dose: Not Given Amiodarone HCl 150 mg/ (Dextrose/Water) 103 mls @ 600 mls/hr IV .BOLUS ONE PRN Reason: Protocol Stop: 03/09/17 22:08 Last Admin: 03/09/17 22:20 Dose: 600 mls/hr Amiodarone HCl 450 mg/ (Dextrose/Water) 250 mls @ 33.33 mls/hr IV ASDIRECTED [facility]; 1 MG/MIN PRN Reason: Protocol Last Admin: 03/09/17 22:49 Dose: 1 mg/min, 33.33 mls/hr Diltiazem HCl 100 mg/ Sodium (Chloride) 100 mls @ 5 mls/hr IV TITRATE [facility]; 5 MG /HR PRN Reason: Protocol Last Admin: 03/09/17 22:31 Dose: 5 mg/hr, 5 mls/hr Sodium Chloride (Normal Saline) 1,000 mls @ 150 mls/hr IV ASDIRECTED [facility] Last Admin: 03/09/17 22:39 Dose: 150 mls/hr Magnesium Sulfate 2 gm/ Premix 50 mls @ 25 mls/hr IV ONETIME ONE Stop: 03/10/17 01:22 Last Admin: 03/09/17 23:57 Dose: 25 mls/hr Metoprolol Tartrate (Lopressor) 25 mg PO Q6H [facility] Last Admin: 03/10/17 06:27 Dose: 25 mg Metoprolol Tartrate (Lopressor) 25 mg PO Q6H [facility] Nicotine (Habitrol) 21 mg TRDERM DAILY [facility] Last Admin: 03/10/17 08:14 Dose: Not Given Potassium Chloride (Klor-Con M20) 40 meq PO ONETIME ONE Stop: 03/09/17 23:42 Last Admin: 03/10/17 00:07 Dose: 40 meq Propofol (Diprivan 20 Ml) Confirm Administered Dose 200 mg .ROUTE .STK-MED ONE Stop: 03/09/17 21:34 Sodium Chloride (Saline Flush) 10 ml FLUSH ASDIRECTED PRN PRN Reason: Keep Vein Open Last Admin: 03/09/17 22:36 Dose: 10 ml *Q Meaningful Use (DIS) - VTE *Q VTE Criteria *Q: - Stroke *Q Stroke Criteria *Q: - AMI *Q AMI Criteria *Q:
[2017-03-11] MEDS ORDERED: Amiodarone 200 MG Tab PO SCH (09:00)
[2017-03-11] MEDS ORDERED: Aspirin 81 MG Tab.Chew PO SCH (09:00)
[2017-03-11] MEDS: cefTRIAXone 1 GM in Sodium Chloride 0.9% 50 ML IV SCH (09:38)
== END 2017-03-11 09:50 | disposition home or self-care (01) | DRG 309 ==
LOC: JP.ED 20:31 → JP.ICU 22:49
PROVIDERS: ADMIT Hospitalist; ATTEND Internal Medicine
PROC: 5A2204Z Restoration of Cardiac Rhythm, Single (ICD-10-PCS; principal; 2017-03-09)
DX: I48.1 Persistent atrial fibrillation (principal); I48.91 Unspecified atrial fibrillation; N30.00 Acute cystitis without hematuria; B95.4 Other streptococcus as the cause of diseases classified elsewhere; R00.2 Palpitations; F17.210 Nicotine dependence, cigarettes, uncomplicated; R74.8 Abnormal levels of other serum enzymes; Z79.82 Long term (current) use of aspirin; Z88.5 Allergy status to narcotic agent
CPT/HCPCS: 36415; 71010 ×2; 80053; 82553; 83735; 84443; 84484; 85025; 92960; 93005; 96365; 96375; 96376; 99285; G0480; J0153 ×2; J0282; J2704; J7030; J7040; J7050; 80048; 81001; 84439; 85027; 87086; 87088; 93010; 93306; 99283; A9270-GY; J0696; J1650; J3475; J3490; J7060